=== PATIENT | male | born 2000 | race Caucasian/White ===

== ENCOUNTER 2024-09-29 17:27 | Emergency (ER) | payer BC, SELFPAY ==
[2024-09-29] VITALS (17 sets, daily range): BP systolic 137–142; BP diastolic 76–95; PULSE 63–110; RESP 12–33; TEMP 36.4; O2SAT 96–100
--- NOTE | ~2024-09-29 | CT_ITS ---
EXAMINATION: CT diagnostic chest wo con DATE: 09/29/2024 22:36 INDICATION: Chronic cough. recently moved from [place] TECHNIQUE: Computed tomography (CT) of the chest was performed without intravenous contrast. Addition al 3D reconstructions utilizing coronal maximum intensity projection (MIP) were performed. Automated exposure control and iterative reconstruction technique were employed. The dose-length product was 80 6.34 mGy-cm. COMPARISON: None FINDINGS: There are small subsegmental regions of subtle groundglass opacity in the right upper and middle and bilateral lower lung zones. No pulmonary edema or pleural effusion. Small calcified nodules in the le ft lower lobe consistent with old granulomatous disease. Heart size is normal. No pericardial effusio n. Thoracic aorta is normal in caliber. No pathologically enlarged thoracic lymphadenopathy. Visualiz ed upper abdomen is unremarkable. Bones are normal. IMPRESSION: 1. A few regions of subtle groundglass opacity in both lungs most likely related to either pneumonia including atypical viral pneumonia is and hypersensitivity pneumonitis. Reviewed, dictated and finalized at location A. IMPRESSION: 1. A few regions of subtle groundglass opacity in both lungs most likely relate d to either pneumonia including atypical viral pneumonia is and hypersensitivit y pneumonitis.
--- NOTE | ~2024-09-29 | XR_ITS ---
XR chest 1V portable Ordering provider: Porter Shields MD History: 24 years Male with . Cough x3 months . Comparison: None. FINDINGS: MEDIASTINUM: The cardiac silhouette is not enlarged. LUNGS: No infiltrates, effusions or pneumothorax. OTHER: No free air under the diaphragm. IMPRESSION: No acute cardiopulmonary pathology. Reviewed, dictated and finalized at location A.
--- NOTE | 2024-09-29 21:02 | ECG_ITS ---
Test Date: 2024-09-29 22:05:27 Measurements Intervals [place] Rate: 82 P: 67 MA: 195 QRS: 65 QRSD: 84 T: 64 QT: 363 QTc: 425 Interpretive Statements SINUS RHYTHM BASELINE ARTIFACT- I, III, AVR ,AVL, V4-V6 NORMAL ECG No previous ECG available for comparison Electronically Signed On 09-30-2024 07:52:52 CDT by Thompson Luke D.O.
--- OUTSIDE RECORDS SUMMARY | 2024-09-29 21:17 | XMS_ITS | Clinical Summary ---
Author Organization [facility] Address [facility] [place] [address] Care Team Providers Care Transportation Aid Name Role Phone None, Provider MD Primary Care Provider Unavaila ble Allergies No known active allergies Medications albuterol sulfate HFA 108 (90 Base) MCG/ACT inhaler Inhale 2 puffs into the lungs every 6 (six) hours as needed for Wheezing. 10 g 5 Active albuterol sulfate HFA 108 (90 Base) MCG/ACT inhaler Inhale 2-4 puffs into the lungs every 4 (four) hours as needed for Wheezing or Shortness of breath (cough). 18 g 5 Active albuterol (PROVENTIL) (2.5 MG/3ML) 0.083% nebulizer solution Take 6 mLs (5 mg total) by nebulization every 4 (four) hours as needed for Wheezing or Shortness of breath (cough). 360 mL Active Encounters Date Type Department Care Team Description 07/29/2024 2:02 PM [employer]ER - 07/29/2024 3:34 PM [facility] Emergency [facility] Emergency Room [id number] [place] [id number] Dana Locke MD URI Discharge Disposition: Home or Self Care (Routine Discharge) 07/29/2024 Travel 07/03/2024 3:52 PM P[employer]Y ASSEMBLER - 07/03/2024 4:27 PM [facility] Emergency [facility] Emergency Room [id number] [place] [id number] Yao Wagoner MD Cough Discharge Disposition: Home or Self Care (Routine Discharge) 07/03/2024 Travel from Last 3 Months Social History Tobacco Use Types Packs/Day Years Used Date Smoking Tobacco: Never Smokeless Tobacco: Never Tobacco Cessation:Counseling Given: Not Answered Alcohol Use Standard Drinks/Week Comments Never 0 (1 standard drink = 0.6 oz pur e alcohol) Sex and Gender Information Value Date Recorded Sex Assigned at Male 06/14/2021 8:53 PM P[employer]Y ASSEMBLER Legal Sex Male 4:08 PM [employer]BLER Gender Identity Male 06/14/2021 8:53 PM P[employer]Y [employer]SEMBLER Sexual Orientation Straight 06/14/2021 8: 53 PM P[employer]IC BAT[employer]Y ASSEMBLER Last Filed Vital Signs Vital Sign Reading Time Taken Comments Blood Pressure 150/50 07/29/2024 3:28 PM [employer]ER Pulse 77 07/29/2024 3:28 PM [employer]BLER Temperature 37.1 C (98.7 F) 07/29/2024 3:28 PM P[employer]ER Respiratory Rate 20 07/29/2024 3:28 PM P[employer] BAT[employer]Y ASSEMBLER Oxygen Saturation 100% 07/29/2024 3:28 PM P[employer] BAT[employer]Y ASSEMBLER Inhaled Oxygen Concentration - - Weight 158 kg (348 lb 5.2 oz) 07/29/2024 2:02 PM P[employer]Y [employer]BLER Height 190.5 cm (6' 3 ) 07/29/2024 2:02 PM P[employer]Y ASSEMBLER Body Mass Index 43.54 07/29/2024 2:02 PM P[employer]Y ASSEMBLER Plan of Treatment Health Maintenance Due Date Last Done Comments Annual Physical 2004 HPV Vaccines (1 - Male 3-dos e series) 2016 Meningococcal B Vaccine (1 o f 2 - Standard) 2017 Hepatitis C 09/08/2019 DTaP, Tdap and Td Vaccines ( 1 - Tdap) 2020 Hepatitis B Vaccines (1 of 3 - 19+ 3-dose series) 2020 COVID-19 Vaccine (1 - 2023-2 5 season) 2024 PHQ-2 (Physician [place]) 06/06/2024 Meningococcal Vaccine Aged Out No alethea chandrika eligible based on patient's age to complete this topic Pneumococcal Vaccine: Pediat rics (0 to 5 Years) and At-Risk Patients (6 to 49 Years) Aged Out No longer eligible b ased on patient's age to complete this topic RSV Immunizations Under 20 Months Aged Out No longer eligible based on patient's age to complete this topic Procedures Procedure Name Priority Date/Time Associated Diagnosis Comments XR CHEST PA+LAT STAT 07/29/2024 2:48 PM P[employer]Y [employer]BLER COMPREHENSIVE METABOLIC PANEL STAT 07/29/2024 2:21 PM P[employer]Y ASSEMBLER CBC W/DIFF AUTOMATED STAT 07/29/2024 2:21 PM P[employer] BAT[employer]Y ASSEMBLER INFLUENZA A & B STAT 07/29/2024 2:11 PM P[employer] BATTERY ASSEMBLER CORONAVIRUS (COVID 19) STAT 2:11 PM P[employer]IC BATTERY ASSEMBLER from Last 3 Months Results * XR CHEST PA+LAT (07/29/2024 2:48 PM PLASTIC BATTERY ASSEMBLER) Anatomical Region Laterality Modality Chest Radiographic Sharon ging 07/29/2024 2:50 PM PLASTIC BATTERY ASSEMBLER Impressions 07/29/2024 2:51 PM PLASTIC BATTERY ASSEMBLER IMPRESSION: Bronchial wall thickening which may be seen with bronchitis as well as reticular opacities in the lung bases that may be seen with atelectasis or pneumonia. No focal pulmonary consolidation. Referred By: Interpreted By: Charlie Puri MD, 07/29/2024 2:50 PM Narrative 07/29/2024 2:51 PM PLASTIC BATTERY ASSEMBLER [address] [place] [address] EXAMINATION: XR CHEST PA+LAT, 07/29/2024 2:50 PM TECHNIQUE: Upright PA and lateral radiographs of the chest HISTORY: Cough, wheezing, dyspnea for 3 months COMPARISON: Chest radiographs 06/20/2024 FINDINGS: Heart size is normal. Findings of bronchial wall thickening. Suggestion of reticular opacities in the lung bases. No focal pulmonary consolidation. No pleural effusion. No pneumothorax. The thoracic vertebral body heights are preserved. Procedure Note Charlie Puri MD - 07/29/[address] [place] [address] EXAMINATION: XR CHEST PA+LAT, 07/29/2024 2:50 PM TECHNIQUE: Upright PA and lateral radiographs of the chest HISTORY: Cough, wheezing, dyspnea for 3 months COMPARISON: Chest radiographs 06/20/2024 FINDINGS: Heart size is normal. Findings of bronchial wall thickening.Suggestion of reticular opacities in the lung bases. No focal pulmonaryconsolidation. No pleural effusion. No pneumothorax. The thoracicvertebral body heights are preserved. IMPRESSION: Bronchial wall thickening which may be seen with bronchitis as well asreticular opacities in the lung bases that may be seen with atelectasis orpneumonia. No focal pulmonary consolidation. Referred By: Interpreted By: Charlie Puri MD, 07/29/2024 2:50 PM us Dana Locke MD GENERAL IMAGING Final Resu lt * COMPREHENSIVE METABOLIC PANEL (07/29/2024 2:21 PM PLASTIC BATTERY ASSEMBLER) GLUCOSE 94 70 - 99 MG/DL 07/29/2024 2:59 PM PLASTIC BATTERY ASSEMBLER [facility] BUN 7 7 - 18 MG/DL 07/29/2024 2:59 PM [facility] CREATININE S/P/B 0.83 0.7 - 1.3 MG/DL 07/29/2024 2:59 PM P[employer]Y AS[employer]BLER [facility] SODIUM S/P/B 137 136 - 145 MMOL/L 07/29/2024 2:59 PM [facility] POTASSIUM S/P/B 3.7 3.5 - 5.1 MMOL/L 07/29/2024 2:59 PM [employer]ER [facility] CHLORIDE S/P/B 102 100 - 108 MMOL/L 07/29/2024 2:59 PM [facility] CO2 22.6 21 - 32 MMOL/L 07/29/2024 2:59 PM [facility] CALCIUM S/P/B 8.9 8.5 - 10.1 MG/DL 07/29/2024 2:59 PM [facility] BILIRUBIN TOTAL S/P/B 0.6 0.2 - 1.2 MG/DL 07/29/2024 2:59 PM [facility] TOTAL PROTEIN S/P/B 7.3 6.4 - 8.2 G/DL 07/29/2024 2:59 PM [facility] ALBUMIN S/P/B 4.0 3.4 - 5.0 G/DL 07/29/2024 2:59 PM [facility] AST 20 15 - 37 U/L 07/29/2024 2:59 PM [facility] ALT 48 16 - 60 U/L 07/29/2024 2:59 PM [facility] ALKALINE PHOSPHATASE S/P/B 73 50 - 136 U/L 07/29/2024 2:59 PM [facility] ANION GAP 12.4 5 - 15 MMOL/L 07/29/2024 2:59 PM [facility] BUN CREATININE RATIO 8.4 6 - 26 07/29/2024 2:59 PM [facility] A/G RATIO 1.2 1.0 - 2.0 RATIO 07/29/2024 2:59 PM [facility] GFR ESTIMATE >90 >90 ML/MIN/1.7 3 M2 07/29/2024 2:59 PM [facility] Comment: NOTE: eGFR is not calculated for patients <18 years of age. This is an estimated GFR calculation using the new CKD EPI creatinine equation without race and so does not require a correction factor for race. This estimated GFR should not be used for calculating drug doses. 07/29/2024 2:21 PM P[employer] BATTERY ASSEMBLER us Dana Locke MD LABORATORY Final Resu lt [facility] [address] [place] [address], * (ABNORMAL) CBC W/DIFF AUTOMATED (07/29/2024 2:21 PM PLASTIC BATTERY ASSEMBLER) WBC 10.92 4.4 - 11.0 x10'3/uL 07/29/2024 2:42 PM [facility] RBC 4.94 4.50 - 5.90 x10'6/uL 07/29/2024 2:42 PM [facility] HGB 14.9 14.0 - 17.5 G/DL 07/29/2024 2:42 PM [facility] HCT 43.3 41.5 - 50.4 % 07/29/2024 2:42 PM [facility] MCV 87.7 80.0 - 96.0 FL 07/29/2024 2:42 PM [facility] MCH 30.2 26.5 - 31.4 PG 07/29/2024 2:42 PM [facility] MCHC 34.4 31.9 - 34.8 G/DL 07/29/2024 2:42 PM [facility] RDW 12.9 12.3 - 14.3 % 07/29/2024 2:42 PM [facility] PLT 260 151 - 353 x10'3/uL 07/29/2024 2:42 PM [facility] MPV 11.3 9.7 - 11.9 FL 07/29/2024 2:42 PM [facility] RBC MORPHOLOGY NORMAL 07/29/2024 2:42 PM [facility] PLT MORPH. NORMAL 07/29/2024 2:42 PM [facility] WBC MORPHOLOGY NORMAL 07/29/2024 2:42 PM P[employer] BAT[employer]Y ASSEMBLER [facility] LYMPHOCYTES % 19.5 15.8 - 45.0 % 07/29/2024 2:42 PM [facility] NEUTROPHILS % 62.6 42.1 - 71.9 % 07/29/2024 2:42 PM [facility] MONOCYTES % 5.5(L) 5.7 - 12.5 % 07/29/2024 2:42 PM P[employer] BATTERY ASSEMBLER [facility] EOSINOPHILS 11.2(H) 0.0 - 5.6 % 07/29/2024 2:42 PM [facility] BASOPHILS 1.0 0.0 - 1.3 % 07/29/2024 2:42 PM [facility] ABS. NEUTROPHILS 6.84(H) 1.40 - 6.00 x10'3/uL 07/29/2024 2:42 PM P[employer] BATTERY ASSEMBLER [facility] IMMATURE GRANS % 0.2 0.0 - 0.5 % 07/29/2024 2:42 PM [facility] ABS. LYMPHOCYTES 2.13 0.80 - 4.70 x10'3/uL 07/29/2024 2:42 PM [facility] 07/29/2024 2:21 PM PLASTIC BATTERY ASSEMBLER us Dana Locke MD LABORATORY Final Resu lt [facility] [address] [place] [address], * CORONAVIRUS (COVID-19) MOLECULAR (07/29/2024 2:11 PM PLASTIC BATTERY ASSEMBLER) CORONAVIRUS SARS COV 2 RNA NEGATIVE NEGATIVE 07/29/2024 2:35 PM PLASTIC BATTERY ASSEMBLER [facility] Comment: NEGATIVE RESULTS DO NOT RULE OUT COVID 19 AND SHOULD NOT BE USED THE SOLE BASIS FOR TREATMENT OR PATIENT MANAGEMENT DECISIONS, INCLUDING INFECTION CONTROL DECISIONS. NEGATIVE RESULTS SHOULD BE CONSIDERED IN THE CONTEXT OF A PATIENT'S RECENT EXPOSURES, HISTORY AND THE PRESENCE OF CLINICAL SIGNS AND SYMPTOMS CONSISTENT WITH COVID 19. THE ID NOW COVID-19 2.0 TEST HAS BEEN AUTHORIZED BY THE FDA UNDER EAU FOR USE BY AUTHORIZED LABORATORIES. PERFORMED BY NUCLEIC ACID AMPLIFICATION FOR MOLECULAR QUALITATIVE DETECTION OF SARS-COV-2. NASOPHARYNGEAL SWAB / Unknown 07/29/2024 2:11 PM PLASTIC BATTERY ASSEMBLER Dana Locke MD MICROBIOLOGY - GENERAL ORD ERABLES Final Result Performing Organization Address City/[facility]/ZIP Co de Phone Number [facility] [address] [place] [address], [place] [phone] * INFLUENZA A & B (07/29/2024 2:11 PM PLASTIC BATTERY ASSEMBLER) SPECIMEN TYPE NASOPHARYNX 07/29/2024 2:52 PM PLASTIC BATTERY ASSEMBLER [facility] INFLUENZA A NEGATIVE NEGATIVE 07/29/2024 2:52 PM PLASTIC BATTERY ASSEMBLER [facility] INFLUENZA B NEGATIVE NEGATIVE 07/29/2024 2:52 PM PLASTIC BATTERY ASSEMBLER [facility] NASOPHARYNGEAL SWAB / Unknown 07/29/2024 2:11 PM PLASTIC BATTERY ASSEMBLER Dana Locke MD MICROBIOLOGY - GENERAL ORD ERABLES Final Result [facility] [address] [place] [address], [place] [phone] from Last 3 Months Insurance [facility] Care Teams Transportation Aid Relationship Specialty Start Date End Date None, Provider, PCP - General 06/11/21
[2024-09-29] MEDS: MAGNESIUM SULF 2 GM/WATER 50ML 2 GM/50 ML BAG IVPB (21:23)
[2024-09-29] MEDS: dexAMETHasone SOD PHOS INJ 10 MG/ML 1 ML VIAL IV PUSH (21:24)
--- NOTE | 2024-09-29 21:34 | ED.GENADULT ---
HPI - General Adult General Chief complaint: Upper Respiratory Infection Stated complaint: cough x3 months Time Seen by Provider: 09/29/24 20:53 History of Present Illness HPI narrative: This is a 24-year-old male with history of autism presenting for cough x3 months. Patient is seen multiple emergency in urgent care doctors for this. He has been prescribed inhalers steroids and antibiotics. The inhalers work for short period of time but then he always develops his cough and wheezing again. He has not seen a primary care physician yet. He is on rescue albuterol inhalers but is not on maintenance. He denies fevers chills chest pain abdominal pain or lower extremity edema. Patient moved from [place] 3 months ago. Related Data Allergies Allergy/AdvReac Type Severity Reaction Status Date / Time No Known Allergies Allergy Verified 09/29/24 17:28 Exam Narrative: APPEARANCE: No apparent distress. Head: atraumatic. EYES: EOMI, NOSE: Atraumatic NECK: Trachea midline RESPIRATORY: No increased rate of breathing, speaking in full sentences normal respiratory rate, 100% air faint end-expiratory wheezing CARDIOVASCULAR: RRR, no peripheral edema ABDOMINAL: Non-distended soft nontender MUSCULOSKELETAl: No obvious deformities NEURO: Alert. Moving 4/4 extremities SKIN:: Warm, dry. Normal color PSYCHIATRIC: Normal affect Course Vital Signs Vital signs: Vital Signs Temperature 97.6 F 09/29/24 17:56 Pulse Rate 63 09/29/24 17:56 Respiratory Rate 16 09/29/24 17:56 Blood Pressure 142/92 H 09/29/24 17:56 Pulse Oximetry 98 09/29/24 17:56 Oxygen Delivery Room Air 09/29/24 17:56 Temperature 97.6 F 09/29/24 17:56 Pulse Rate 100 09/30/24 00:17 Respiratory Rate 14 09/30/24 00:17 Blood Pressure 137/76 09/30/24 00:17 Pulse Oximetry 97 09/30/24 00:17 Oxygen Delivery Room Air 09/29/24 21:32 Medical Decision Making [facility] Narrative Medical decision making narrative: -Course: 24-year-old presenting with chronic cough. Faint expiratory wheezing. Patient received breathing treatment with complete resolution of his symptoms. Chest x-ray, CT chest laboratory studies all within normal limits. Patient likely has asthma which is causing his cough. Patient be discharged with primary care physician. Given return precautions. -DDX includes but is not limited to: Asthma, bronchitis, GERD, postnasal drip, and Vital Signs Vital Signs: Vital Signs Temperature 97.6 F 09/29/24 17:56 Pulse Rate 63 09/29/24 17:56 Respiratory Rate 16 09/29/24 17:56 Blood Pressure 142/92 H 09/29/24 17:56 Pulse Oximetry 98 09/29/24 17:56 Oxygen Delivery Room Air 09/29/24 17:56 Temperature 97.6 F 09/29/24 17:56 Pulse Rate 100 09/30/24 00:17 Respiratory Rate 14 09/30/24 00:17 Blood Pressure 137/76 09/30/24 00:17 Pulse Oximetry 97 09/30/24 00:17 Oxygen Delivery Room Air 09/29/24 21:32 Lab Data 09/29/24 21:29 09/29/24 21:29 Labs: Lab Results 09/29/24 Range/Units 21:29 WBC 11.1 H (4.5-10.0) K/mm3 RBC 4.91 (4.6-6.20) M/mm3 Hgb 14.1 (14.0-18.0) g/dL Hct 43.7 (42.0-52.0) % MCV 89.0 (80-100) fl MCH 28.7 (26-34) pg MCHC 32.3 (32-36) g/dl RDW 12.8 (11.5-14.5) % Plt Count 244 (150-375) k/mm3 MPV 11.2 H (7.4-10.4) fl Immature Gran % (Auto) 0.4 (0-0.5) % Neut % (Auto) 65.6 (45.5-73.1) % Lymph % (Auto) 22.0 (18.3-44.2) % [place] % (Auto) 6.7 (2.6-8.5) % Eos % (Auto) 4.8 H (0-4.4) % Baso % (Auto) 0.5 (0.2-1.2) % Lymph # (Auto) 2.45 (0.9-3.2) K/mm3 [place] # (Auto) 0.8 H (0.1-0.6) K/mm3 Eos # (Auto) 0.5 H (0-0.3) K/mm3 Baso # (Auto) 0.1 (0.0-0.1) K/mm3 Abs Immat Gran (auto) 0.04 H (0.00-0.031) K/mm3 Absolute Neuts (auto) 7.3 H (1.3-6.7) K/mm3 Absolute Nucleated RBC 0.000 (0.0-0.012) K/mm3 Nucleated RBC % 0.0 (0.0-0.2) % D-Dimer 0.28 (<0.48) ug/mL Sodium 138 (137-145) mmol/L Potassium 4.2 (3.4-5.0) mmol/L Chloride 106 (98-107) mmol/L Carbon Dioxide 23 (22-30) mmol/L Anion Gap 9 (4-12) mmol/L BUN 9 (9-20) mg/dL Creatinine 0.81 (0.7-1.3) mg/dL Estim Creat Clear Calc 204 ml/min Estimated GFR > 60 (59 - ) Glucose 87 (65-110) mg/dL Calcium 8.8 (8.4-10.2) mg/dL Total Bilirubin 0.6 (0.2-1.3) mg/dL AST 21 (17-59) U/L ALT 38 (6-50) U/L Alkaline Phosphatase 61 (38-126) U/L Troponin I < 0.012 (0.000-0.034) ng/mL NT-Pro-B Natriuret Pep 82 (19.9-100) pg/mL Total Protein 7.0 (6.3-8.2) g/dL Albumin 4.2 (3.5-5.1) g/dL Influenza A (RT-PCR) Negative (Negative) Influenza B (RT-PCR) Negative (Negative) RSV (RT-PCR) Negative (Negative) SARS-CoV-2 RNA (RT-PCR) Negative (Negative) Discharge Plan Discharge Clinical Impression: Asthma Patient Disposition: Home Condition: Stable Instructions: Antibiotic Form, Asthma (DC) Patient Language: [place] Prescriptions: New ipratropium-albuterol 0.5 mg-3 mg(2.5 mg base)/3 mL solution for nebulization 3 ml inhalation QID PRN (Reason: shortness of breath or wheezing) Qty: 180 0RF Follow-up/Referrals: Silvio Celis MD [Physician] - 1 Week (establish pcp. asthma ) UNKNOWN,DOCTOR [Primary Care Provider] -
[2024-09-29 21:40] LABS: Basophils Absolute Auto 0.1 K/mm3 (0.0-0.1); Basophils Percent Auto 0.5 % (0.2-1.2); Eosinophils Absolute Auto 0.5 K/mm3 (0-0.3); Eosinophils Percent Auto 4.8 % (0-4.4); Hematocrit 43.7 % (42.0-52.0); Hemoglobin 14.1 g/dL (14.0-18.0); Immature Granulocyte Absolute 0.04 K/mm3 (0.00-0.031); Immature Granulocyte Percent A 0.4 % (0-0.5); Lymphocytes Absolute Auto 2.45 K/mm3 (0.9-3.2); Mean Corpuscular HGB Conc 32.3 g/dl (32-36); Mean Corpuscular Hemoglobin 28.7 pg (26-34); Mean Platelet Volume 11.2 fl (7.4-10.4); Monocytes Absolute Auto 0.8 K/mm3 (0.1-0.6); Monocytes Percent Auto 6.7 % (2.6-8.5); Neutrophils Absolute Auto 7.3 K/mm3 (1.3-6.7); Neutrophils Percent Auto 65.6 % (45.5-73.1); Platelet Count Result 244 k/mm3 (150-375); Red Blood Count 4.91 M/mm3 (4.6-6.20); Red Cell Distribution Width 12.8 % (11.5-14.5); White Blood Count 11.1 K/mm3 (4.5-10.0)
[2024-09-29 21:49] LABS: Alanine Aminotransferase 38 U/L (6-50); Albumin Level 4.2 g/dL (3.5-5.1); Alkaline Phosphatase 61 U/L (38-126); Anion Gap 9 mmol/L (4-12); Aspartate Amino Transferase 21 U/L (17-59); Bilirubin,Total 0.6 mg/dL (0.2-1.3); Blood Urea Nitrogen 9 mg/dL (9-20); Calcium 8.8 mg/dL (8.4-10.2); Carbon Dioxide 23 mmol/L (22-30); Chloride 106 mmol/L (98-107); Estimated CRCL calculation 204 ml/min; Estimated Glomerular Filt Rate > 60; Glucose 87 mg/dL (65-110); Potassium 4.2 mmol/L (3.4-5.0); Sodium 138 mmol/L (137-145)
[2024-09-29] MEDS: IPRATROPIUM 0.5 MG/ALBUTEROL SULFATE 2.5 MG AMPUL.NEB 3 ML 6 ML INHALATION (21:54)
[2024-09-29 22:00] LABS: D Dimer 0.28 ug/mL (<0.48); NT Pro B Type Natriuretic Pept 82 pg/mL (19.9-100); Troponin I < 0.012 ng/mL (0.000-0.034)
[2024-09-29 22:39] LABS: Influenza A QL RT-PCR Negative (Negative); Influenza B QL RT-PCR Negative (Negative); RSV RNA, RT-PCR Negative (Negative); SARS-CoV-2 RNA PCR Negative (Negative)
[2024-09-30] VITALS: PULSE 110; RESP 15; O2SAT 97
[2024-09-30 00:17] VITALS: BP 137/76; PULSE 100; RESP 14; O2SAT 97
[2024-09-30 00:45] VITALS: BP 141/92; O2SAT 94
[2024-09-30 02:15] VITALS: BP 138/99
[2024-09-30 02:21] VITALS: BP 138/99; PULSE 103; RESP 16; O2SAT 98
== END 2024-09-30 02:23 | disposition home or self-care (01) ==
PROVIDERS: Emergency Provider Emergency Medicine
DX: J45.909 Unspecified asthma, uncomplicated (principal); Z20.822 Contact with and (suspected) exposure to COVID-19; F84.0 Autistic disorder
CPT/HCPCS: 36415; 71045; 71250; 80053; 83880; 84484; 85025; 85380; 87637; 93005; 94640; 96365; 96375; 99284; J1100; J3475